=== PATIENT | female | born 1960 | race Caucasian/White ===

== ENCOUNTER 2023-10-14 18:11 | Emergency (ER) | payer BC, SELFPAY ==
[2023-10-14 18:21] VITALS: BP 118/72; PULSE 69; RESP 16; TEMP 36.8; O2SAT 99
--- NOTE | 2023-10-14 18:42 | ED.URI ---
HPI - URI/Sore Throat General Chief Complaint: Upper Respiratory Infection Stated Complaint: COUGH/HEADACHE/FEVER/TIRED/BODY ACHES Time Seen by Provider: 10/14/23 18:34 Source: patient and RN notes reviewed Mode of arrival: ambulatory Limitations: no limitations History of Present Illness HPI Narrative: Patient presents today with a 3 day history of headache, cough, chills, body aches, subjective fever. Reports sore throat developed today. She has done to COVID test the home since onset of symptoms and both were negative. She currently rates her pain 5/10 and has taken Tylenol and ibuprofen with some relief at home. Related Data Home Medications Medication Instructions Recorded Confirmed fluoxetine 20 mg tablet mg 10/14/23 Allergies Allergy/AdvReac Type Severity Reaction Status Date / Time No Known Allergies Allergy Verified 10/14/23 18:29 Review of Systems Review of Systems: CONSTITUTIONAL: Denies sweats.+ chills, body aches, subjective fever EYES: Denies visual changes, redness, or discharge. ENT: Denies rhinorrhea, congestion, or otalgia.+ sore throat CARDIOVASCULAR: Denies chest pain, palpitations, or edema. RESPIRATORY: Denies dyspnea.+ cough GASTROINTESTINAL: Denies abdominal pain, nausea, vomiting, or diarrhea. GENITOURINARY: Denies dysuria or hematuria. SKIN: Denies rash, itching, or wounds. MUSCULOSKELETAL: Denies back pain, joint pain, or myalgia. NEUROLOGIC: Denies numbness, tingling, or weakness.+ headache PSYCH: Denies depression or anxiety. PMFSH Comments At time of signature, I have reviewed and agree with nursing past medical, surgical, social and family history unless otherwise noted. Please see nursing chart for further information. There is no relevant family history pertinent to the presenting complaint Exam Narrative: GENERAL: Well-appearing, well-nourished, and in no acute distress. HEAD: Normocephalic, atraumatic. EYES: EOMI. No redness or drainage. Conjunctivae normal. ENT: Mucous membranes pink and moist. Nares mildly congested. No rhinorrhea. TMs normal bilaterally. Throat normal. Uvula midline. NECK: Normal AROM. Supple. No lymphadenopathy. CHEST: No respiratory distress. Clear to auscultation. HEART: Regular rate and rhythm. No murmur appreciated. EXTREMITIES: Normal range of motion. No edema. SKIN: Warm, dry, no rash. Capillary refill normal. Normal skin turgor. NEURO: No focal deficits. Alert and oriented x3. Gait steady. PSYCH: Normal affect. No signs of depression or anxiety. Course Course Level of Care: Express Care Visit Vital Signs Vital signs: Vital Signs Temperature 98.2 F 10/14/23 18:21 Pulse Rate 69 10/14/23 18:21 Respiratory Rate 16 10/14/23 18:21 Blood Pressure 118/72 10/14/23 18:21 Pulse Oximetry 99 10/14/23 18:21 Temperature 98.2 F 10/14/23 18:21 Pulse Rate 69 10/14/23 18:21 Respiratory Rate 16 10/14/23 18:21 Blood Pressure 118/72 10/14/23 18:21 Pulse Oximetry 99 10/14/23 18:21 Reviewed MDM - URI/Sore Throat MDM Narrative Medical decision making narrative: Rapid strep negative. Declines culture. Symptoms likely viral in etiology. Discussed [id number] medication use and duration of illness. No prescription medications indicated at this time. Anticipatory guidance given. Differential Diagnosis Differential diagnosis: Likely upper respiratory infection, viral infection, bronchitis, pharyngitis and other (Strep throat) Lab Data Attestation: I reviewed the patient's lab results. Lab results narrative: Rapid strep negative. Patient declines culture Labs: Lab Results 10/14/23 Range/Units 18:40 POC Grp A Strep Screen Pending Gp A Beta Strep Culture Pending Grp A Strep Int Pos QC Pending Critical Care Time Critical Care Time Critical Care Time: No Discharge Plan Discharge Clinical Impression: Upper respiratory infection Patient Disposition:
[2023-10-14 18:43] LABS: EDSTREPNEGPOS1 Presumptive Negative
== END 2023-10-14 18:49 | disposition home or self-care (01) ==
PROVIDERS: Emergency Provider Nurse Practitioner; PCP Family Medicine Sports Medicine
DX: J06.9 Acute upper respiratory infection, unspecified (principal)
CPT/HCPCS: 87880; 99202; G0463